=== PATIENT | female | born 1950 | race Caucasian/White ===

== ENCOUNTER 2020-04-05 19:46 | Emergency (ER) | payer MEDICARE, SELFPAY ==
--- NOTE | ~2020-04-05 | XR_ITS ---
EXAMINATION: XR wrist RT min 3V INDICATION: Right wrist pain, initial encounter TECHNIQUE: Four views of the right wrist were obtained COMPARISON: None available FINDINGS: There is an acute, traumatic, closed, comminuted intra-articular fracture of the distal rad ius. Soft tissue swelling surrounds the fracture. There appears to be an old ulnar styloid avulsion. No additional acute osseous findings are evident. IMPRESSION: 1. Comminuted intra-articular fracture of the distal radius. Reviewed, dictated and finalized at location A.
[2020-04-05 19:47] VITALS: BP 153/72; PULSE 94; RESP 18; TEMP 36.4; O2SAT 97
--- NOTE | 2020-04-05 20:23 | ED.UPPEXIN ---
HPI - Extremity Injury (Upper) General Chief Complaint: Extremity Injury, Upper Stated Complaint: r wrist injury Time Seen by Provider: 04/05/20 20:12 History of Present Illness HPI narrative: Fall down a few stairs onto outstretched right hand a few hours before coming in. Moderate pain. Worse with movement of the wrist. She noted swelling to the wrist and proximal hand. No weakness, numbness, wound. She had a previous severe fracture to the wirst with residual deformity Related Data Home Medications Medication Instructions Recorded Confirmed aspirin 81 mg PO DAILY 04/05/20 rosuvastatin 81 mg PO DAILY 04/05/20 Allergies Allergy/AdvReac Type Severity Reaction Status Date / Time Penicillins Allergy Hives Verified 04/05/20 19:50 Review of Systems Review of Systems: All systems reviewed & are unremarkable except as noted in HPI and below Constitutional: Constitutional: Denies fever(s) Respiratory: Respiratory: Denies dyspnea Musculoskeletal: Musculoskeletal: Denies back pain Neurologic: Denies dizziness, Denies headache(s), Denies numbness and Denies weakness Hematologic/Lymphatic: Hematologic/Lymphatic: Denies easy bleeding and Denies easy bruising PMFSH Past Medical History Medical History (Updated 04/06/20 @ 02:32 by Valentín Mueller MD) Wrist fracture Social History Social History (Updated 04/06/20 @ 02:32 by Valentín Mueller MD) Smoking status: Never smoker Gender identity (if verbalized by the patient): Female Exam Const: General: healthy appearing, no acute distress and alert Nutritional Appearance: well nourished Orientation/consciousness: patient oriented x3 HENMT: Head: normal to inspection Cardio: Other: 2+ right radial pulse with brisk cap refill Skin: General skin exam: normal color Wounds: no wounds Neuro: General: patient oriented x3 Speech: normal speech Gait exam (Neuro): Normal gait present Other: Neurologically intact Extrem: Other: Tenderness and mildly limited ROM in right wrist. Course Vital Signs Vital signs: Vital Signs Temperature 36.4 C L 04/05/20 19:47 Pulse Rate 94 04/05/20 19:47 Respiratory Rate 18 04/05/20 19:47 Blood Pressure 153/72 H 04/05/20 19:47 Pulse Oximetry 97 04/05/20 19:47 Temperature 36.4 C L 04/05/20 19:47 Pulse Rate 74 05/22/20 22:10 Respiratory Rate 18 04/05/20 22:10 Blood Pressure 140/73 04/05/20 22:10 Pulse Oximetry 95 04/05/20 22:10 MDM - Extremity Injury (Upper) MDM Narrative Medical decision making narrative: She has a comminuted fracture of the right wrist. This seems to overlap significantly with her prior injury Differential Diagnosis Differential diagnosis: Likely sprain and strain of wrist and fracture of wrist Medical Records Attestation: I reviewed the patient's medical records. Imaging Data Radiologist's impression: ITS Impressions Wrist X-Ray 04/05/20 20:07 IMPRESSION: 1. Comminuted intra-articular fracture of the distal radius. Discharge Plan Discharge Clinical Impression: Distal radius fracture, right Patient Disposition: Home, Self-Care Condition: Stable Instructions: Wrist Fracture in Adults (ED) Prescriptions: No Action aspirin 81 mg Tablet,Chewable 81 mg PO DAILY RF: 0 rosuvastatin 5 mg tablet 81 mg PO DAILY RF: 0 Follow-up/Referrals: Singh Ceballos MD [Physician] - 1 Week Skor,Stu Busch MD [Primary Care Provider] - Discharge Date/Time: 04/05/20 22:20
--- NOTE | 2020-04-05 20:45 | PC.NURSE ---
Pt seated in chair awaiting radiology result, right wrist appears swollen along thumb area. Pt states it only hurts a little rating it at a one. There is no breakage in the skin. Pt is able to move wrist, fingers and thumb, slight pain when moving thumb inward and outward. capillary refill WNL.
[2020-04-05 22:10] VITALS: BP 140/73; PULSE 74; RESP 18; O2SAT 95
== END 2020-04-05 22:20 | disposition home or self-care (01) ==
PROVIDERS: Emergency Provider Emergency Medicine; PCP Internal Medicine
DX: S52.571A Other intraarticular fracture of lower end of right radius, initial encounter for closed fracture (principal); W10.9XXA Fall (on) (from) unspecified stairs and steps, initial encounter
CPT/HCPCS: 29125; 73110; 99284; A4565